=== PATIENT | male | born 1965 | race Caucasian/White ===

== ENCOUNTER 2017-02-19 09:22 | Emergency (ER) | payer SELFPAY | END 2017-02-19 14:42 | disposition home or self-care (01) | LOC: ER1 09:22 | DX: M53.88 Other specified dorsopathies, sacral and sacrococcygeal region (principal); M16.12 Unilateral primary osteoarthritis, left hip; F17.200 Nicotine dependence, unspecified, uncomplicated | CPT/HCPCS: 72100; 73502; 96372; 99283; J1100; J1885 ==